=== PATIENT | female | born 1985 | race Caucasian/White ===

== ENCOUNTER 2024-07-16 11:45 | Emergency (ER) | payer OTHER ==
[~2024-07-16] VITALS: Ht 152.4 cm; Wt 65.5 kg
[2024-07-16 12:54] LABS: BASOPHILS % (AUTO) 1.3 % (0.0-2.0); EOSINOPHILS % (AUTO) 1.2 % (1.0-6.0); HEMATOCRIT 35.9 % (36-46); HEMOGLOBIN 11.4 g/dL (12.0-16.0); LYMPHOCYTES # (AUTO) 1.6 K/uL (1.0-4.8); LYMPHOCYTES % (AUTO) 19.4 % (22.0-44.0); MEAN CORPUSCULAR HEMOGLOBIN 25.9 pg (26.0-34.0); MEAN CORPUSCULAR HGB CONC 31.7 G/dL (31.0-37.0); MEAN CORPUSCULAR VOLUME 82 fL (80-100); MONOCYTES # (AUTO) 0.4 K/uL (0.1-1.0); MONOCYTES % (AUTO) 5.4 % (2.0-9.0); NEUTROPHILS % (AUTO) 72.7 % (40.0-70.0); PLATELET COUNT (AUTO) 305 K/uL (150-450); RED CELL DISTRIBUTION WIDTH 18.6 % (11.5-14.5); WHITE BLOOD COUNT (AUTO) 8.3 K/uL (4.5-11.0)
[2024-07-16 13:01] LABS: ANION GAP 6 mmol/L (8-16); CALCIUM, TOTAL 8.1 mg/dL (8.8-10.5); CARBON DIOXIDE 27 mmol/L (22-29); CHLORIDE 104 mmol/L (98-107); CREATININE 0.71 mg/dL (0.60-1.30); GLOMERULAR FILTR. RATE CALC > 60 mL/min (>60); GLUCOSE,RANDOM 86 mg/dL (70-110); POTASSIUM 3.6 mmol/L (3.5-5.1); SODIUM SERUM 137 mmol/L (136-145); UREA NITROGEN, BLOOD 5 mg/dL (7-18)
[2024-07-16 13:09] LABS: TROPONIN I-HIGH SENSITIVITY 23 ng/L (<51)
[2024-07-16 13:57] VITALS: TEMP 98.5
[2024-07-16] MEDS: IBUPROFEN 400 MG TABLET PO ONE (14:04)
[2024-07-16] MEDS: ACETAMINOPHEN 325 MG TABLET PO ONE (14:04)
[2024-07-16 14:43] LABS: TROPONIN I-HIGH SENSITIVITY 30 ng/L (<51)
[2024-07-16 15:27] VITALS: BP 138/72; PULSE 72; RESP 12; O2SAT 99
== END 2024-07-16 16:06 ==
LOC: EMS 11:48
DX: R07.89 Other chest pain (principal); I10 Essential (primary) hypertension; F10.90 Alcohol use, unspecified, uncomplicated; Y90.9 Presence of alcohol in blood, level not specified
CPT/HCPCS: 71045; 80048; 84484; 84703; 85025; 93005; 99285; 36415-L1; 36415-TC